=== PATIENT | female | born 1960 | race Caucasian/White ===

== ENCOUNTER 2023-04-22 14:25 | Emergency (ER) | payer MEDICARE, MEDICAID, SELFPAY ==
--- NOTE | ~2023-04-22 | XR_ITS ---
EXAMINATION: XR ankle RT min 3V DATE: 04/22/2023 15:01 INDICATION: Lateral right ankle pain post fall TECHNIQUE: Anteroposterior, oblique, mortise, and lateral views of the right ankle were obtained. COMPARISON: None. FINDINGS: Alignment is normal. No fracture. Joint spaces are well maintained. Tiny plantar calcaneal spur. No ankle joint effusion. Mild soft tissue swelling about the lateral malleolus. IMPRESSION: 1. No acute osseous abnormality. Reviewed, dictated and finalized at location L.
--- NOTE | ~2023-04-22 | XR_ITS ---
EXAM: XR knee RT min 4V DATE: 04/22/2023 15:01 HISTORY: fall, pain rt lateral knee . COMPARISON: None available. FINDINGS: Decreased mineralization. Nondisplaced fracture of the fibular head. No lytic or blastic l esion. Mild tricompartmental osteoarthritis. No erosion or periosteal change. Soft tissues within nor mal limits. IMPRESSION: Osteopenia. Nondisplaced fibular head fracture. Reviewed, dictated and finalized at location K.
[2023-04-22 14:38] VITALS: BP 157/84; PULSE 73; RESP 16; TEMP 37.1; O2SAT 100
[2023-04-22 14:45] VITALS: BP 157/84; PULSE 73; RESP 16; TEMP 37.1; O2SAT 100
--- NOTE | 2023-04-22 17:34 | ED.GENADULT ---
HPI - General Adult General Chief complaint: Extremity Injury, Lower Stated complaint: Fall Injury/Right Leg Source: patient and family Mode of arrival: ambulatory Limitations: no limitations History of Present Illness HPI narrative: Patient presents for evaluation of right knee and right ankle pain. She indicates 3 nights ago she fell in her bathroom. Her boyfriend was there and heard her fall. She did not hit her head during the fall. She is not on blood thinners. Her boyfriend came to her side and was able to asssist her up. She remembers feeling weak prior to the fall. She denies any precipitating chest pain or shortness of breath at that time. She has a history of hypertension for which she is prescribed lisinopril 20 mg/hydrochlorothiazide 25 mg daily. Her typical blood pressures run high per reports. However, recently her blood pressures been running low. Her primary care provider recently cut her medication in half so that she would be taking 10 mg of lisinopril with 12.5 mg of hydrochlorothiazide. Recently, she has experienced some dizziness when moving from sitting to standing positions consistent with orthostatic hypotension. She injured her right knee and right ankle during the fall 3 nights ago. She contacted her primary care provider the following day was instructed go to the emergency department for evaluation. She states she does not like being evaluated at emergency departments due to long wait times. Over the course of the past few days she has continued to experience pain in the right ankle and knee which prompted her to come in today. She rates her pain as 8/10 severity. She is able to bear weight but is trying to put the majority of her weight on her left leg. She has not been taking any medication for her pain. She denies loss of ROM but states that pain is worse with movement and weightbearing. No paresthesias. She does mention that she had a few episodes of chest pain last week, although not the day of the fall. She did not tell anyone about those episodes. She has not had chest pain prior to last week. She denies any current symptoms of weakness, dizziness, chest pain, shortness of breath or any abnormal symptoms outside of right knee and ankle pain. Related Data Home Medications Medication Instructions Recorded Confirmed alprazolam 1 mg tablet mg 04/22/23 ergocalciferol (vitamin D2) 1,250 04/22/23 mcg (50,000 unit) capsule lisinopril 20 tablet 04/22/23 mg-hydrochlorothiazide 25 mg tablet Allergies Allergy/AdvReac Type Severity Reaction Status Date / Time No Known Allergies Allergy Verified 04/22/23 14:43 Review of Systems Review of Systems: CONSTITUTIONAL: Denies fever, chills, or sweats. EYES: Denies visual changes, redness, or discharge. ENT: Denies rhinorrhea, congestion, sore throat, or otalgia. CARDIOVASCULAR: Denies chest pain, palpitations, or edema. RESPIRATORY: Denies cough or dyspnea. GASTROINTESTINAL: Denies abdominal pain, nausea, vomiting, or diarrhea. GENITOURINARY: Denies dysuria or hematuria. SKIN: Denies rash or itching. MUSCULOSKELETAL: Reports right knee and right ankle pain. NEUROLOGIC: Denies headache, numbness, dizziness, or weakness. PSYCHIATRIC: Denies anxiety or depression. FOR[facility] Past Medical History Medical History Fibula fracture Hypertension Surgical History Surgical History Surgical history unknown Family History Family History Other Diabetes mellitus Family history of elevated blood lipids Hypertension Social History Social History Alcohol intake: never Substance use: never Living arrangements: alone Gender identity (if verbalized by the patient): Female Sexual Orientation (if [place]
== END 2023-04-22 16:08 | disposition home or self-care (01) ==
PROVIDERS: Emergency Provider Nurse Practitioner
DX: S82.401A Unspecified fracture of shaft of right fibula, initial encounter for closed fracture (principal); S93.401A Sprain of unspecified ligament of right ankle, initial encounter; I10 Essential (primary) hypertension; Z79.899 Other long term (current) drug therapy; W18.30XA Fall on same level, unspecified, initial encounter; Y92.002 Bathroom of unspecified non-institutional (private) residence as the place of occurrence of the external cause
CPT/HCPCS: 73564; 73610; 99214; G0463; L1830